=== PATIENT | female | born 1960 | race Caucasian/White ===

== ENCOUNTER 2016-11-01 22:57 | Emergency (ER) | payer OTHER ==
[~2016-11-01] VITALS: Ht 167.6 cm; Wt 76.0 kg
[2016-11-01 23:43] LABS: HEMATOCRIT 32.5 % (36.0-46.0); MCH 29.8 PG (29.0-34.0); MCHC 33.5 G/DL (30.0-36.0); MCV 88.8 FL (83-99); MEAN PLAT.VOLUME 9.6 uM^3 (9.5-12.4); PLATELET COUNT 205 K/uL (156-360); RBC DIS.WIDTH-CV 13.5 % (11.8-14.6); RBC DIS.WIDTH-SD 42.4 % (39-53); RED BLOOD COUNT 3.66 M/uL (3.80-5.20)
[2016-11-02 00:28] LABS: CHLORIDE 103 mEq/L (99-109); POTASSIUM 3.8 mEq/L (3.7-5.4); SODIUM 136 mEq/L (136-147)
[2016-11-02 00:30] LABS: GLUCOSE 98 mg/dL (70-99)
[2016-11-02 00:31] LABS: ANION GAP 11 MEQ/L (2-14)
[2016-11-02 00:34] LABS: GFR ESTIMATE (CALCULATED) > 59 mL/min/
[2016-11-02 00:35] LABS: UREA NITROGEN (BUN) 10 mg/dL (9-23)
[2016-11-02 00:36] LABS: URIC ACID 3.4 mg/dL (3.1-9.2)
[2016-11-02 00:54] LABS: ERTH.SED.RATE 28 MM/HR (0-30)
[2016-11-02 01:42] LABS: C-REACTIVE PROTEIN 11.4 MG/L (0-10)
[2016-11-02 01:43] LABS: INFLUENZA A VIRAL ANTIGEN POSITIVE; INFLUENZA B VIRAL ANTIGEN NEGATIVE
[2016-11-02 02:04] LABS: RED CELL COUNT 6000 /MM^3 (0-1); WHITE CELL COUNT 456 /MM^3 (0-200.0)
[2016-11-02 02:06] LABS: APPEARANCE HAZY/YELLOW
[2016-11-02] MEDS ORDERED: TAMIFLU75 MG PO (02:48)
[2016-11-02] MEDS ORDERED: NAPROSYN500 MG PO (02:48)
[2016-11-02 02:58] VITALS: BP 122/75
[2016-11-02 03:03] LABS: MONO RAW COUNT 52; MONONUCLEAR WBC'S 52 %; POLY RAW COUNT 48; POLYNUCLEAR WBC'S 48 % (0-25); SYNOVIAL FLUID EOSINOPHILS 0 % (0-25)
[2016-11-02 12:06] LABS: CRYSTALS NO CRYSTALS SEEN
== END 2016-11-02 02:59 | disposition home or self-care (01) ==
LOC: EME 22:57
PROVIDERS: Physician Assistant
PROC: 0S9C3ZZ Drainage of Right Knee Joint, Percutaneous Approach (ICD-10-PCS; principal; 2016-11-01)
DX: J10.1 Influenza due to other identified influenza virus with other respiratory manifestations (principal); M25.561 Pain in right knee; M25.461 Effusion, right knee
CPT/HCPCS: 73564; 80048; 84550; 85027; 85651; 86140; 87205; 87502; 89051; 89060; 93971; 99281; 99284; S0020